=== PATIENT | male | born 1960 | race African-American/Black ===

== ENCOUNTER 2020-01-06 12:43 | Inpatient (IN) ==
[2020-01-06] MEDS ORDERED: ONDANSETRON 4 MG/2 ML VIAL IV PRN (13:23)
[2020-01-06] MEDS ORDERED: DEXTROSE 50% 25 GM/50 ML VIAL IV PRN (13:23)
[2020-01-06] MEDS ORDERED: ACETAMINOPHEN 325 MG TABLET PO PRN (13:23)
[2020-01-06] MEDS ORDERED: MAGNESIUM HYDROXIDE SUSP 30 ML UDCUP PO PRN (13:23)
[2020-01-06] MEDS ORDERED: traMADol 50 MG TABLET PO PRN (13:23)
[2020-01-06] MEDS ORDERED: GLUCAGON 1 MG VIAL IM PRN (13:23)
[2020-01-06 15:27] LABS: Basophils % 0.6 % (0.0-0.8); Hematocrit 35.1 VOL% (42.0-52.0); Hemoglobin 11.5 GM/DL (14.0-18.0); Immature Granulocytes % 0.6 %; Immature Granulocytes Absolute 0.02 #; Lymphocytes # 0.8 10*3/uL (1.4-4.0); Mean Corpuscular HGB Conc 32.8 GM/DL (32-36); Mean Corpuscular Volume 90.7 FL (87-102); Mean Platelet Volume 10.1 FL (9.6-12.0); Monocytes % 17.6 % (1.7-12.7); Neutrophils % 56.2 % (38.7-73.9); Platelet Count 270 T/CUMM (130-400); Red Blood Count 3.87 MC/CUMM (3.8-5.5); Red Cell Distribution Width 13.4 % (9.3-17.3); White Blood Count 3.1 T/CUMM (4-12)
[2020-01-06 15:47] LABS: Albumin 3.6 G/DL (3.4-5.0); Bilirubin,Total 0.6 MG/DL (0.2-1.0); Calcium 9.1 MG/DL (8.5-10.1); Osmolality,Calculated 276.2 MOS/KG (273-304); Total Protein 8.8 G/DL (6.4-8.3)
[2020-01-06 16:18] LABS: Eosinophils 3 % (0-10); Hypochromasia 1+; Lymphocytes 22 % (20-55); Microcytosis Slight; Ovalocytes Slight; Platelet Estimate Adequate; Segmented Neutrophils 54 % (50-85); Total Cells Counted 100
[2020-01-06 17:17] LABS: Bilirubin,Urine Negative (Negative); Blood, Urine Small mg/dL (Negative); Glucose,Urine (UA) 50 mg/dL (Negative); Hyaline Casts,Urine 31 /LPF (0-3); Ketones,Urine Negative (Negative); Mucus,Urine Occasional /LPF (Occasional); Nitrite,Urine Negative (Negative); Protein,Urine 30 MG/DL; RBC,Urine 2 /HPF (0-4); Squamous Epithelial Cell,Urine Occasional /HPF (0-10); Urine Appearance CLEAR (Clear); Urine Color Yellow (Yellow); Urine Specific Gravity 1.017 (1.001-1.035); WBC,Urine 1 /HPF (0-6)
[2020-01-06] MEDS: INSULIN LISPRO 100 UNIT/ML SUBCUT SCH ×2 (17:34→22:11)
[2020-01-06] MEDS: SODIUM CHLORIDE 0.9% 1,000 ML IV SCH (17:34)
[2020-01-06] MEDS: TAMSULOSIN 0.4 MG CAPSULE PO SCH (22:08)
[2020-01-06] MEDS: GABAPENTIN 600 MG TABLET PO SCH (22:08)
[2020-01-06] MEDS: METOPROLOL TARTRATE 25 MG TABLET PO SCH (22:08)
[2020-01-06] MEDS: ENOXAPARIN 40 MG/0.4 ML SYRINGE SUBCUT SCH (22:09)
[2020-01-06] MEDS: ENALAPRIL 20 MG TABLET PO SCH (22:10)
[2020-01-07] MEDS: SODIUM CHLORIDE 0.9% 1,000 ML IV SCH ×3 (00:45→17:04)
[2020-01-07 06:45] LABS: Basophils % 0.4 % (0.0-0.8); Eosinophils # 0.1 10*3/uL (0.0-0.87); Eosinophils % 2.4 % (0.00-10.9); Hematocrit 33.5 VOL% (42.0-52.0); Hemoglobin 10.9 GM/DL (14.0-18.0); Immature Granulocytes % 0.4 %; Immature Granulocytes Absolute 0.01 #; Lymphocytes # 0.8 10*3/uL (1.4-4.0); Lymphocytes % 33.1 % (21.2-54.2); Mean Corpuscular HGB Conc 32.5 GM/DL (32-36); Mean Corpuscular Volume 90.5 FL (87-102); Mean Platelet Volume 10.4 FL (9.6-12.0); Monocytes % 19.4 % (1.7-12.7); Neutrophils % 44.3 % (38.7-73.9); Platelet Count 250 T/CUMM (130-400); Red Cell Distribution Width 13.5 % (9.3-17.3); White Blood Count 2.5 T/CUMM (4-12)
[2020-01-07 07:05] LABS: Osmolality,Calculated 281.5 MOS/KG (273-304); Risk Ratio 2.25; VLDL CHOLESTEROL 16.8 MG/DL
[2020-01-07 07:14] LABS: Band Neutrophils 2 % (0-10); Eosinophils 2 % (0-10); Lymphocytes 33 % (20-55); Platelet Estimate Normal; Segmented Neutrophils 43 % (50-85); Total Cells Counted 100
[2020-01-07 07:15] LABS: Anisocytosis 1+; Macrocytosis 1+
[2020-01-07] MEDS ORDERED: BENAZEPRIL 20 MG PO SCH (09:00)
[2020-01-07] MEDS: METOPROLOL TARTRATE 25 MG TABLET PO SCH ×2 (09:25→21:27)
[2020-01-07] MEDS: GABAPENTIN 600 MG TABLET PO SCH ×3 (09:25→21:27)
[2020-01-07] MEDS: ENALAPRIL 20 MG TABLET PO SCH ×2 (09:25→21:26)
[2020-01-07] MEDS: hydroCHLOROthiazide 25 MG TABLET PO SCH (09:26)
[2020-01-07] MEDS: PANTOPRAZOLE 40 MG TABLET PO SCH (09:26)
[2020-01-07] MEDS: INSULIN LISPRO 100 UNIT/ML SUBCUT SCH ×4 (09:27→23:27)
[2020-01-07] MEDS ORDERED: METOPROLOL TARTRATE 25 MG TABLET PO SCH (10:00)
[2020-01-07 12:45] LABS: CKMB % 3.3 %
[2020-01-07 12:48] LABS: Troponin I 0.469 NG/ML (0.00-0.045)
[2020-01-07 14:51] LABS: CKMB % 3.6 %
[2020-01-07 14:53] LABS: Troponin I 0.478 NG/ML (0.00-0.045)
[2020-01-07 17:15] LABS: CKMB % 3.5 %
[2020-01-07 17:16] LABS: Troponin I 0.433 NG/ML (0.00-0.045)
[2020-01-07] MEDS: TAMSULOSIN 0.4 MG CAPSULE PO SCH (21:27)
[2020-01-07] MEDS: ENOXAPARIN 40 MG/0.4 ML SYRINGE SUBCUT SCH (21:27)
[2020-01-08 05:22] LABS: Basophils % 0.8 % (0.0-0.8); Eosinophils # 0.2 10*3/uL (0.0-0.87); Eosinophils % 6.5 % (0.00-10.9); Hematocrit 35.2 VOL% (42.0-52.0); Hemoglobin 11.2 GM/DL (14.0-18.0); Immature Granulocytes % 0.4 %; Immature Granulocytes Absolute 0.01 #; Lymphocytes # 0.7 10*3/uL (1.4-4.0); Lymphocytes % 27.5 % (21.2-54.2); Mean Corpuscular HGB Conc 31.8 GM/DL (32-36); Mean Corpuscular Volume 92.1 FL (87-102); Mean Platelet Volume 10.4 FL (9.6-12.0); Monocytes % 13.8 % (1.7-12.7); Platelet Count 248 T/CUMM (130-400); Red Blood Count 3.82 MC/CUMM (3.8-5.5); Red Cell Distribution Width 13.7 % (9.3-17.3); White Blood Count 2.5 T/CUMM (4-12)
[2020-01-08 05:51] LABS: Burr Cells Slight; Hypochromasia 1+; Ovalocytes Slight; Platelet Estimate Adequate
[2020-01-08 06:09] LABS: Albumin 2.9 G/DL (3.4-5.0); Bilirubin,Total 0.5 MG/DL (0.2-1.0); Calcium 8.5 MG/DL (8.5-10.1); Osmolality,Calculated 280.7 MOS/KG (273-304); Total Protein 7.5 G/DL (6.4-8.3)
[2020-01-08] MEDS: SODIUM CHLORIDE 0.9% 1,000 ML IV SCH ×3 (07:03→16:13)
[2020-01-08] MEDS: INSULIN LISPRO 100 UNIT/ML SUBCUT SCH ×4 (07:22→21:34)
[2020-01-08] MEDS: hydroCHLOROthiazide 25 MG TABLET PO SCH (08:09)
[2020-01-08] MEDS: PANTOPRAZOLE 40 MG TABLET PO SCH (08:09)
[2020-01-08] MEDS: ENALAPRIL 20 MG TABLET PO SCH ×2 (08:09→21:34)
[2020-01-08] MEDS: GABAPENTIN 600 MG TABLET PO SCH ×3 (08:09→21:35)
[2020-01-08] MEDS: METOPROLOL TARTRATE 25 MG TABLET PO SCH ×2 (08:09→21:36)
[2020-01-08] MEDS: ENOXAPARIN 40 MG/0.4 ML SYRINGE SUBCUT SCH (21:34)
[2020-01-08] MEDS: TAMSULOSIN 0.4 MG CAPSULE PO SCH (21:35)
[2020-01-09 05:18] LABS: Basophils % 0.9 % (0.0-0.8); Eosinophils # 0.5 10*3/uL (0.0-0.87); Hematocrit 32.6 VOL% (42.0-52.0); Hemoglobin 10.7 GM/DL (14.0-18.0); Immature Granulocytes % 0.3 %; Immature Granulocytes Absolute 0.01 #; Lymphocytes # 0.6 10*3/uL (1.4-4.0); Lymphocytes % 19.9 % (21.2-54.2); Mean Corpuscular HGB Conc 32.8 GM/DL (32-36); Mean Corpuscular Volume 90.8 FL (87-102); Monocytes % 10.6 % (1.7-12.7); Neutrophils % 54.3 % (38.7-73.9); Platelet Count 227 T/CUMM (130-400); Red Blood Count 3.59 MC/CUMM (3.8-5.5); Red Cell Distribution Width 13.5 % (9.3-17.3); White Blood Count 3.2 T/CUMM (4-12)
[2020-01-09 05:40] LABS: Calcium 8.4 MG/DL (8.5-10.1); Osmolality,Calculated 277.7 MOS/KG (273-304)
[2020-01-09 05:43] LABS: Eosinophils 9 % (0-10); Lymphocytes 23 % (20-55); Platelet Estimate Normal; Segmented Neutrophils 61 % (50-85); Total Cells Counted 100
[2020-01-09 05:44] LABS: Hypochromasia Slight
[2020-01-09] MEDS: SODIUM CHLORIDE 0.9% 1,000 ML IV SCH ×2 (07:44→07:45)
[2020-01-09] MEDS: GABAPENTIN 600 MG TABLET PO SCH (08:17)
[2020-01-09] MEDS: hydroCHLOROthiazide 25 MG TABLET PO SCH (08:17)
[2020-01-09] MEDS: ENALAPRIL 20 MG TABLET PO SCH (08:17)
[2020-01-09] MEDS: PANTOPRAZOLE 40 MG TABLET PO SCH (08:17)
[2020-01-09] MEDS: METOPROLOL TARTRATE 25 MG TABLET PO SCH (08:18)
[2020-01-09] MEDS: INSULIN LISPRO 100 UNIT/ML SUBCUT SCH ×2 (08:18→11:29)
[2020-01-09 11:59] VITALS: BP 145/68
== END 2020-01-09 15:22 | disposition home or self-care (01) | DRG 866 ==
LOC: N.5E 14:13
PROVIDERS: ADMIT Family Medicine; ATTEND Family Medicine